=== PATIENT | male | born 1970 | race Caucasian/White ===

== ENCOUNTER 2018-07-17 10:56 | Day surgery (SDC) | payer OTHER ==
[2018-07-17] MEDS ORDERED: Ketamine HCl 50 MG/ML IV ONE (10:57)
[2018-07-17] MEDS ORDERED: Xylocaine 1% Vial 30 ML PF IJ ONE (10:57)
[2018-07-17] MEDS ORDERED: LIDOCAINE HCL 2% 100 MG/5 ML IJ ONE (10:57)
[2018-07-17] MEDS ORDERED: Depo-Medrol 40 MG/ML IM ONE (10:57)
[2018-07-17] MEDS ORDERED: DIPRIVAN 200 MG/20 ML IV ONE (10:57)
--- NOTE | 2018-07-17 13:55 | XRAY ---
Indication: Bilateral L3-S1 RFA. Intraoperative fluoroscopy was provided for 12 seconds. Single digital spot image submitted for interpretation demonstrates posterior needle tips projecting over the expected course of the left and right L4-S1 nerve roots. Correlate with intraoperative findings/report.
[2018-07-17] MEDS ORDERED: Lactated Ringers 1,000 ML IV ONE (14:37)
--- NOTE | 2018-07-18 08:47 | XRAY ---
12 seconds fluoroscopy time in surgery for L3-S1 bilateral RFA.
== END 2018-07-17 13:18 | disposition home or self-care (01) ==
LOC: SDC-PAIN 10:56
PROVIDERS: ATTEND Psychiatry & Neurology Pain Medicine
DX: M47.817 Spondylosis without myelopathy or radiculopathy, lumbosacral region (principal); E03.9 Hypothyroidism, unspecified; G47.30 Sleep apnea, unspecified; K50.90 Crohn's disease, unspecified, without complications; Z79.899 Other long term (current) drug therapy
CPT/HCPCS: 72100; 77002; J1030; J2001; J2704

== ENCOUNTER 2018-09-04 09:28 | Day surgery (SDC) | payer OTHER ==
[2018-09-04] MEDS ORDERED: Depo-Medrol 40 MG/ML IM ONE (09:29)
[2018-09-04] MEDS ORDERED: Ketamine HCl 50 MG/ML IJ ONE (09:29)
[2018-09-04] MEDS ORDERED: Marcaine 0.5% SDV 10 ML IJ ONE (09:29)
[2018-09-04] MEDS ORDERED: DIPRIVAN 200 MG/20 ML IV ONE (09:29)
--- NOTE | 2018-09-04 13:26 | XRAY ---
Indication: Right L4-S1 MBB. Intraoperative fluoroscopy was provided for 16 seconds. Single digital spot image submitted for interpretation demonstrates posterior needle tips projecting over the expected course of the right L4-S1 nerve roots. Correlate with intraoperative findings/report.
--- NOTE | 2018-09-04 13:28 | XRAY ---
16 seconds of fluoroscopy was used in surgery for a right L4-L5, L5-S1 MBB.
[2018-09-04] MEDS ORDERED: Lactated Ringers 1,000 ML IV ONE (14:53)
== END 2018-09-04 11:20 | disposition home or self-care (01) ==
LOC: SDC-PAIN 09:28
PROVIDERS: ATTEND Psychiatry & Neurology Pain Medicine
DX: M47.816 Spondylosis without myelopathy or radiculopathy, lumbar region (principal); E03.9 Hypothyroidism, unspecified; G47.30 Sleep apnea, unspecified; K50.90 Crohn's disease, unspecified, without complications; K58.9 Irritable bowel syndrome, unspecified; Z79.899 Other long term (current) drug therapy
CPT/HCPCS: 64493; 64494; 72020; 77002; J1030; J2704

== ENCOUNTER 2018-11-20 13:01 | Day surgery (SDC) | payer OTHER ==
[2018-11-20] MEDS ORDERED: Depo-Medrol 40 MG/ML IM ONE (13:02)
[2018-11-20] MEDS ORDERED: Marcaine 0.5% SDV 10 ML IJ ONE (13:02)
[2018-11-20] MEDS ORDERED: Xylocaine 1% Vial 30 ML PF IJ ONE (13:02)
[2018-11-20] MEDS ORDERED: Lactated Ringers 1,000 ML IV ONE ×2 (13:13→17:09)
--- NOTE | 2018-11-20 15:28 | XRAY ---
Indication: Right L4-S1 RFA. Intraoperative fluoroscopy was provided for 24 seconds. 2 digital spot images submitted for interpretation demonstrates posterior needle tips projecting over the expected course of the right L4-S1 nerve roots. Correlate with intraoperative findings/report.
--- NOTE | 2018-11-20 16:51 | XRAY ---
24 seconds fluoroscopy time in surgery for bilateral L4-S1 RFA.
== END 2018-11-20 14:30 | disposition home or self-care (01) ==
LOC: SDC-PAIN 13:01
PROVIDERS: ATTEND Psychiatry & Neurology Pain Medicine
DX: M47.816 Spondylosis without myelopathy or radiculopathy, lumbar region (principal); E03.9 Hypothyroidism, unspecified; G47.30 Sleep apnea, unspecified; K50.90 Crohn's disease, unspecified, without complications; Z79.899 Other long term (current) drug therapy
CPT/HCPCS: 64635; 64636; 72100; 77002; J1030; J2001

== ENCOUNTER 2019-05-28 06:31 | Observation (INO) | payer OTHER ==
--- NOTE | 2019-05-28 06:43 | ERPHSYRPT ---
<ELOISA ALMODOVAR - Last Filed: 05/28/19 06:47> - History of Present Illness Time Seen by Provider: 05/28/19 06:36 Historian: patient Exam Limitations: no limitations Physician History: 48 y/o white male presents with 4 day h/o central substernal nonradiating chest tightness. no h/o TX or CADZ. pt has h/o hypothyroid, crohns dz and depression. Timing/Duration: day(s) (4) Activities at Onset: none Quality: tightness Location: substernal, central Chest Pain Radiation: no radiation Severity of Pain-Max: mild Severity of Pain-Current: mild Associated Symptoms: No denies symptoms Nitro Today/Relief: no nitro taken today Aspirin Treatment Today: no aspirin today Allergies/Adverse Reactions: Penicillins Allergy (Unknown, Verified 05/28/19 07:09) Home Medications: Levothyroxine Sodium [Synthroid] 175 mcg PO DAILY 02/25/14 [History] Montelukast Sodium [Singulair] 10 mg PO DAILY 02/25/14 [History] Escitalopram Oxalate 10 mg [Lexapro 10 MG] 20 mg PO DAILY 03/09/16 [History] Testosterone Cypionate [Depo-Testosterone] 0.7 ml IM UD 03/09/16 [History] Dextroamphetamine/Amphetamine [Adderall Xr 20 mg Capsule] 20 mg PO DAILY [History] Hx Influenza Vaccination/Date Given: (2012) Hx Pneumococcal Vaccination/Date Given: No - Review of Systems Constitutional: No Symptoms Eyes: No Symptoms Ears, Nose, & Throat: No Symptoms Respiratory: No Symptoms Cardiac: Chest Pain Abdominal/Gastrointestinal: No Symptoms Genitourinary Symptoms: No Symptoms Musculoskeletal: No Symptoms Skin: No Symptoms Neurological: No Symptoms Psychological: No Symptoms Endocrine: No Symptoms Hematologic/Lymphatic: No Symptoms Immunological/Allergic: No Symptoms All Other Systems: Reviewed and Negative - Past Medical History Pertinent Past Medical History: Yes Neurological History: No Pertinent History ENT History: No Pertinent History Cardiac History: No Pertinent History Respiratory History: Sleep Apnea Endocrine Medical History: Hypothyroidism Musculoskeletal History: Osteoarthritis, Other GI Medical History: No Pertinent History History: No Pertinent History Psycho-Social History: Attention Deficit Disorder, Depression Male Reproductive Disorders: No Pertinent History 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 - Past Surgical History Past Surgical History: Yes Neuro Surgical History: No Pertinent History Cardiac: No Pertinent History Respiratory: No Pertinent History Gastrointestinal: No Pertinent History Genitourinary: No Pertinent History Musculoskeletal: No Pertinent History Male Surgical History: No Pertinent History Other Surgical History: deviated surgery - Social History Smoking Status: Never smoker Exposure to second hand smoke: No Drug Use: none - Nursing Vital Signs Nursing Vital Signs: Initial Vital Signs Temperature 98.9 F 05/28/19 06:32 Pulse Rate 88 05/28/19 06:32 Respiratory Rate 14 05/28/19 06:32 Blood Pressure 165/103 05/28/19 06:32 O2 Sat by Pulse Oximetry 98 05/28/19 06:32 Pain Scale Pain Intensity 1 - Physical Exam General Appearance: mild distress, alert, anxiety Eye Exam: PERRL/EOMI, eyes nml inspection Ears, Nose, Throat Exam: normal ENT inspection, moist mucous membranes Neck Exam: normal inspection, non-tender, supple, full range of motion Respiratory Exam: normal breath sounds, chest tenderness, lungs clear, respiratory distress, airway intact Cardiovascular Exam: regular rate/rhythm, normal heart sounds, normal peripheral pulses Gastrointestinal/Abdomen Exam: soft, normal bowel sounds, No tenderness Rectal Exam: not done Back Exam: normal inspection, normal range of motion, No CVA tenderness, No vertebral tenderness Extremity Exam: normal inspection, normal range of motion, pelvis stable Neurologic Exam: alert, oriented x 3, cooperative, program management specialist II-XII nml as tested Skin Exam: normal color, warm, dry Lymphatic Exam: No adenopathy SpO2 Interpretation: normal O2 Delivery: Room Air - Course Nursing assessment & vital signs reviewed: Yes EKG Interpreted by Me: RATE (90), Sinus Rhythm, NORMAL AXIS, NORMAL INTERVALS, NORMAL QRS, Other (comparison ekg no change.) Ordered Tests: Active Orders 24 hr Category Date Time Status Bedrest with BRP/BSC ROUTINE Activity 05/28/19 08:34 Active Television Reporter STAT Care 05/28/19 07:29 Active Code Status Order ROUTINE Care 05/28/19 08:34 Active IV Care Q6H Care 05/28/19 08:34 Active IV Insertion STAT Care 05/28/19 07:28 Active Implement Chest Pain Pathway ROUTINE Care 05/28/19 08:[address] in Observation ROUTINE Care 05/28/19 08:34 Active Min Hose, Apply ROUTINE Care 05/28/19 08:34 Active Weight,Daily 0600 Care 05/28/19 08:34 Active CHEST 1 VIEW (PORTABLE) Stat Exams 05/28/19 07:29 Completed CBC W DIFF Stat Lab 05/28/19 06:48 Completed CMP Stat Lab 05/28/19 06:48 Completed D-DIMER QUANTITATIVE Stat Lab 05/28/19 06:48 Completed LIPID PROFILE AM.LAB Lab 05/29/19 04:00 Ordered NT PRO BNP Stat Lab 05/28/19 06:48 Completed TROPONIN Q3H Lab 05/28/19 06:48 Completed TROPONIN Q3H Lab 05/28/19 10:30 Ordered TROPONIN Q3H Lab 05/28/19 13:30 Ordered TROPONIN Q3H Lab 05/28/19 16:30 Ordered TROPONIN Q3H Lab 05/28/19 19:30 Ordered Urine Triage Profile Stat Lab 05/28/19 08:11 Completed EKG Q8HX2,QAMX3,PRN RT 05/28/19 08:34 Active Pulse Oximetry Q4H RT 05/28/19 08:34 Active Medication Summary Generic Name Dose Route Start Last Admin Trade Name Freq PRN Reason Stop Dose Admin Acetaminophen 650 mg 05/28/19 08:34 Tylenol 325 Mg PO 06/27/19 08:33 Q4H PRN PRN PAIN AND/OR FEVER Al Hydrox/Mg Hydrox/Simethicone 30 ml 05/28/19 08:34 Maalox Es 30 Ml Unit Dose PO 06/27/19 08:33 Q4H PRN PRN INDIGESTION Magnesium Hydroxide 30 - 60 ml 05/28/19 08:34 Milk Of Magnesia 30 Ml PO 06/27/19 08:33 QDP PRN CONSTIPATION Senna/Docusate Sodium 2 udtab 05/28/19 08:34 Senokot-S Tablet PO 06/27/19 08:33 BID PRN PRN CONSTIPATION Discontinued Medications Generic Name Dose Route Start Last Admin Trade Name Freq PRN Reason Stop Dose Admin Aspirin 324 mg 05/28/19 07:28 05/28/19 07:44 Baby Aspirin 81 Mg Chew PO 05/28/19 07:29 324 mg STAT ONE Administration Lab/Rad Data: Laboratory Result Diagrams 05/28/19 06:48 05/28/19 06:48 Laboratory Results 05/28/19 05/28/19 05/28/19 Range/Units 06:48 06:48 06:48 WBC (4.0-10.5) K/mm3 RBC (4.1-5.6) M/mm3 Hgb (12.5-18.0) gm/dl Hct (42-50) % MCV (78-100) fl MCH (26-32) pg MCHC (32-36) g/dl RDW (11.5-14.0) % Plt Count (150-450) K/mm3 MPV (7.5-11.0) fl Gran % (36.0-66.0) % Eos # (Auto) (0-0.5) Absolute Lymphs (auto) (1.0-4.6) Absolute Monos (auto) (0.0-1.3) Lymphocytes % (24.0-44.0) % Monocytes % (0.0-12.0) % Eosinophils % (0.00-5.0) % Basophils % (0.0-0.4) % Absolute Granulocytes (1.4-6.9) Basophils # (0-0.4) D-Dimer 281 (215-500) ng/mL Sodium 140 (137-145) mmol/L Potassium 4.2 (3.5-5.1) mmol/L Chloride 98 (98-107) mmol/L Carbon Dioxide 30 (22-30) mmol/L Anion Gap 15.8 H (5-15) MEQ/L BUN 22 H (9-20) mg/dL Creatinine 1.47 H (0.66-1.25) mg/dL Estimated GFR 54.3 ML/MIN Glucose 103 (74-106) mg/dL Calcium 9.3 (8.4-10.2) mg/dL Total Bilirubin 1.10 (0.2-1.3) mg/dL AST 47 (17-59) U/L ALT 32 (0-50) U/L Alkaline Phosphatase 65 (38-126) U/L Troponin I 0.032 (0.000-0.034) ng/mL NT-Pro-B Natriuret Pep 56.6 (0-450) pg/mL Serum Total Protein 8.6 H (6.3-8.2) g/dL Albumin 4.7 (3.5-5.0) g/dL 05/28/19 Range/Units 06:48 WBC 7.8 (4.0-10.5) K/mm3 RBC 5.55 (4.1-5.6) M/mm3 Hgb 12.1 L (12.5-18.0) gm/dl Hct 41.0 L (42-50) % MCV 73.9 L (78-100) fl MCH 21.8 L (26-32) pg MCHC 29.5 L (32-36) g/dl RDW 19.3 H (11.5-14.0) % Plt Count 287 (150-450) K/mm3 MPV 9.6 (7.5-11.0) fl Gran % 70.4 H (36.0-66.0) % Eos # (Auto) 0.11 (0-0.5) Absolute Lymphs (auto) 1.45 (1.0-4.6) Absolute Monos (auto) 0.71 (0.0-1.3) Lymphocytes % 18.6 L (24.0-44.0) % Monocytes % 9.1 (0.0-12.0) % Eosinophils % 1.4 (0.00-5.0) % Basophils % 0.5 (0.0-0.4) % Absolute Granulocytes 5.49 (1.4-6.9) Basophils # 0.04 (0-0.4) D-Dimer (215-500) ng/mL Sodium (137-145) mmol/L Potassium (3.5-5.1) mmol/L Chloride (98-107) mmol/L Carbon Dioxide (22-30) mmol/L Anion Gap (5-15) MEQ/L BUN (9-20) mg/dL Creatinine (0.66-1.25) mg/dL Estimated GFR ML/MIN Glucose (74-106) mg/dL Calcium (8.4-10.2) mg/dL Total Bilirubin (0.2-1.3) mg/dL AST (17-59) U/L ALT (0-50) U/L Alkaline Phosphatase (38-126) U/L Troponin I (0.000-0.034) ng/mL NT-Pro-B Natriuret Pep (0-450) pg/mL Serum Total Protein (6.3-8.2) g/dL Albumin (3.5-5.0) g/dL - Progress Air Movement: good Progress Note: 05/28/19 06:58 pt tranfer of care to dr. berry. he accepts pt in transfer - Departure Departure Disposition: Home Clinical Impression: Chest pain Condition: Stable Critical Care Time: No Referrals: ELIUD FRANKLIN MD [Primary Care Provider] - <YAMILKA BERRY - Last Filed: 05/28/19 08:46> - Progress Progress Note: Patient reassessed. He continues to experience left sided chest discomfort. Ecg shows NSR/negative for ischemia. Initial troponin negative. D-dimer negative. CXR clear. ASA administered. POC discussed with patient. He is very concerned. Case discussed with Dr. Franklin who accepts admission to observation. Patient agrees to admission. 05/28/19 08:40
[2019-05-28] MEDS ORDERED: BABY ASPIRIN 81 MG CHEW PO ONE (07:28)
[2019-05-28 07:42] LABS: Absolute Neutrophil Ct (ANC) 5.49 (1.4-6.9); BASOPHIL % 0.5 % (0.0-0.4); Basophil (Absolute #) 0.04 (0-0.4); Eosinophil % 1.4 % (0.00-5.0); Eosinophil (Absolute #) 0.11 (0-0.5); Hemoglobin 12.1 gm/dl (12.5-18.0); Lymphocyte (Absolute #) 1.45 (1.0-4.6); Lymphocytes % 18.6 % (24.0-44.0); Mean Cell Volume 73.9 fl (78-100); Mean Corpuscular Hemoglobin 21.8 pg (26-32); Mean Corpuscular Hgb Concent. 29.5 g/dl (32-36); Mean Platelet Volume 9.6 fl (7.5-11.0); Monocyte (Absolute #) 0.71 (0.0-1.3); Monocytes % 9.1 % (0.0-12.0); Neutrophil % 70.4 % (36.0-66.0); Platelet Count 287 K/mm3 (150-450); Red Blood Count 5.55 M/mm3 (4.1-5.6); Red Cell Distribution Width 19.3 % (11.5-14.0); White Blood Count 7.8 K/mm3 (4.0-10.5)
[2019-05-28 07:57] LABS: ALBUMIN 4.7 g/dL (3.5-5.0); ANION GAP 15.8 MEQ/L (5-15); BILIRUBIN,TOTAL 1.1 mg/dL (0.2-1.3); Calcium 9.3 mg/dL (8.4-10.2); Creatinine 1 1.47 mg/dL (0.66-1.25); NT PRO BNP 56.6 pg/mL (0-450); Potassium 4.2 mmol/L (3.5-5.1); Total Protein 8.6 g/dL (6.3-8.2)
[2019-05-28] MEDS ORDERED: MILK OF MAGNESIA 30 ML PO PRN (08:34)
[2019-05-28] MEDS ORDERED: MAALOX ES 30 ML UNIT DOSE PO PRN (08:34)
[2019-05-28] MEDS ORDERED: TYLENOL 325 MG PO PRN (08:34)
[2019-05-28] MEDS ORDERED: Senokot-S Tablet PO PRN (08:34)
[2019-05-28 08:35] LABS: Amphetamine,Urine POSITIVE (NEGATIVE); Barbiturate,Urine NEGATIVE (NEGATIVE); Benzodiazepine,Urine NEGATIVE (NEGATIVE); Cocaine,Urine NEGATIVE (NEGATIVE); Methadone,Urine NEGATIVE (NEGATIVE); Opiate,Urine NEGATIVE (NEGATIVE); PCP,Urine NEGATIVE (NEGATIVE); THC,Urine NEGATIVE (NEGATIVE)
--- NOTE | 2019-05-28 08:36 | XRAY ---
Indication: Chest pain. Comparison: None Portable chest is clear. Heart is not enlarged for AP portable technique. Bony thorax intact with minimal degenerative changes. Impression: Nonacute chest.
[2019-05-28 09:28] LABS: Slide Review 1 YES
[2019-05-28] MEDS ORDERED: Zofran 4 MG/2 ML VIAL IV PRN (10:04)
[2019-05-28] MEDS ORDERED: MORPHINE SULFATE 4 MG INJ IV PRN (10:04)
--- NOTE | 2019-05-28 10:04 | PCM.HP ---
History of Present Illness - Chief Complaint Chief Complaint: chest pain History of Present Illness: is a 48 year old male who presented to the ER with pressure in his chest for the last 3-4 days, his pain is much worse at night. He has no history of cad, has a history of depression and crohn's. his pain has resolved since he was in the ER, he denies associated shortness of breath, no pnd or othopnea, no nausea or vomiting. he admits to being under a great deal of stress and feeling anxious, he was having problems with a new antidepressant viibryd so stopped it and went back to taking lexapro which has done well for him in the past. - Review of Systems Constitutional: No Fever, No Chills Cardiac: Chest Pain, No Syncope, No Orthopnea, No PND Abdominal/Gastrointestinal: No Abdominal Pain, No Nausea, No Vomiting, No Diarrhea Genitourinary Symptoms: No Dysuria Psychological: Anxiety, Depression, No Suicidal Ideations, No Homicidal Ideations All Other Systems: Reviewed and Negative Medications & Allergies Home Medications: Home Medication List Levothyroxine Sodium [Synthroid] 175 mcg PO DAILY 02/25/14 [History Confirmed ] Montelukast Sodium [Singulair] 10 mg PO DAILY 02/25/14 [History Confirmed ] Escitalopram Oxalate 10 mg [Lexapro 10 MG] 20 mg PO HS 03/09/16 [History Confirmed 05/28/19] Testosterone Cypionate [Depo-Testosterone] 0.8 ml IM UD 03/09/16 [History Confirmed 05/28/19] Dextroamphetamine/Amphetamine [Adderall Xr 20 mg Capsule] 20 mg PO DAILY [History Confirmed 05/28/19] Fenofibrate Nanocrystallized [Fenofibrate] 48 mg PO HS 05/28/19 [History Confirmed 05/28/19] Mesalamine 1.2 gm PO DAILY 05/28/19 [History Confirmed 05/28/19] Metformin HCl 500 mg [Glucophage 500 MG] 500 mg PO BID 05/28/19 [History Confirmed 05/28/19] Omeprazole 40 mg PO DAILY 05/28/19 [History Confirmed 05/28/19] Vilazodone HCl [Viibryd] 1 each PO DAILY 05/28/19 [History Confirmed 05/28/19] Allergies/Adverse Reactions: Allergies Allergy/AdvReac Type Severity Reaction Status Date / Time Penicillins Allergy Unknown Verified 05/28/19 07:09 - Past Medical History Past Medical History: Yes Neurological History: No Pertinent History ENT History: No Pertinent History Cardiac History: No Pertinent History Respiratory History: Sleep Apnea Endocrine Medical History: Diabetes Type II, Hypothyroidism Musculoskelatal History: Other GI Medical History: No Pertinent History History: No Pertinent History Pyscho-Social History: Attention Deficit Disorder, Depression Male Reproductive Disorders: No Pertinent History Comment: chronic back pain - Past Surgical History Past Surgical History: Yes Neuro Surgical History: No Pertinent History Cardiac History: No Pertinent History Respiratory Surgery: No Pertinent History GI Surgical History: No Pertinent History Genitourinary Surgical Hx: No Pertinent History Musculskeletal Surgical Hx: No Pertinent History Male Surgical History: No Pertinent History Other Surgical History: deviated septum surgery - Social History Smoking Status: Never smoker Exposure to second hand smoke: No Alcohol: None Drug Use: none - Physical Exam Vital Signs: Vital Signs - 24 hr Temp Pulse Pulse Resp BP Pulse Ox 05/28/19 09:17 98.7 F 85 13 129/72 99 05/28/19 08:04 87 16 142/92 98 05/28/19 07:25 89 15 141/83 98 05/28/19 06:32 98.9 F 87 88 14 165/103 98 General Appearance: no apparent distress, obese Neurologic Exam: alert, oriented x 3 Respiratory Exam: normal breath sounds, lungs clear, No respiratory distress Cardiovascular Exam: regular rate/rhythm, normal heart sounds, normal peripheral pulses Gastrointestinal/Abdomen Exam: soft, normal bowel sounds, No tenderness, No mass Extremity Exam: normal inspection, normal range of motion, pelvis stable Skin Exam: normal color, warm, dry, No rash Results - Labs Lab/Micro Results: Lab Results-Last 24 Hours 05/28/19 05/28/19 05/28/19 Range/Units 06:48 06:48 06:48 WBC 7.8 (4.0-10.5) K/mm3 RBC 5.55 (4.1-5.6) M/mm3 Hgb 12.1 L (12.5-18.0) gm/dl Hct 41.0 L (42-50) % MCV 73.9 L (78-100) fl MCH 21.8 L (26-32) pg MCHC 29.5 L (32-36) g/dl RDW 19.3 H (11.5-14.0) % Plt Count 287 (150-450) K/mm3 MPV 9.6 (7.5-11.0) fl Gran % 70.4 H (36.0-66.0) % Eos # (Auto) 0.11 (0-0.5) Absolute Lymphs (auto) 1.45 (1.0-4.6) Absolute Monos (auto) 0.71 (0.0-1.3) Lymphocytes % 18.6 L (24.0-44.0) % Monocytes % 9.1 (0.0-12.0) % Eosinophils % 1.4 (0.00-5.0) % Basophils % 0.5 (0.0-0.4) % Absolute Granulocytes 5.49 (1.4-6.9) Basophils # 0.04 (0-0.4) D-Dimer 281 (215-500) ng/mL Sodium 140 (137-145) mmol/L Potassium 4.2 (3.5-5.1) mmol/L Chloride 98 (98-107) mmol/L Carbon Dioxide 30 (22-30) mmol/L Anion Gap 15.8 H (5-15) MEQ/L BUN 22 H (9-20) mg/dL Creatinine 1.47 H (0.66-1.25) mg/dL Estimated GFR 54.3 ML/MIN Glucose 103 (74-106) mg/dL Calcium 9.3 (8.4-10.2) mg/dL Total Bilirubin 1.10 (0.2-1.3) mg/dL AST 47 (17-59) U/L ALT 32 (0-50) U/L Alkaline Phosphatase 65 (38-126) U/L Troponin I (0.000-0.034) ng/mL NT-Pro-B Natriuret Pep 56.6 (0-450) pg/mL Serum Total Protein 8.6 H (6.3-8.2) g/dL Albumin 4.7 (3.5-5.0) g/dL Urine Opiates Level (NEGATIVE) Ur Methadone (NEGATIVE) Urine Barbiturates (NEGATIVE) Ur Phencyclidine (PCP) (NEGATIVE) Urine Amphetamine (NEGATIVE) U Benzodiazepine Level (NEGATIVE) Urine Cocaine (NEGATIVE) Urine Marijuana (THC) (NEGATIVE) Slides for Path Review YES 05/28/19 05/28/19 Range/Units 06:48 08:11 WBC (4.0-10.5) K/mm3 RBC (4.1-5.6) M/mm3 Hgb (12.5-18.0) gm/dl Hct (42-50) % MCV (78-100) fl MCH (26-32) pg MCHC (32-36) g/dl RDW (11.5-14.0) % Plt Count (150-450) K/mm3 MPV (7.5-11.0) fl Gran % (36.0-66.0) % Eos # (Auto) (0-0.5) Absolute Lymphs (auto) (1.0-4.6) Absolute Monos (auto) (0.0-1.3) Lymphocytes % (24.0-44.0) % Monocytes % (0.0-12.0) % Eosinophils % (0.00-5.0) % Basophils % (0.0-0.4) % Absolute Granulocytes (1.4-6.9) Basophils # (0-0.4) D-Dimer (215-500) ng/mL Sodium (137-145) mmol/L Potassium (3.5-5.1) mmol/L Chloride (98-107) mmol/L Carbon Dioxide (22-30) mmol/L Anion Gap (5-15) MEQ/L BUN (9-20) mg/dL Creatinine (0.66-1.25) mg/dL Estimated GFR ML/MIN Glucose (74-106) mg/dL Calcium (8.4-10.2) mg/dL Total Bilirubin (0.2-1.3) mg/dL AST (17-59) U/L ALT (0-50) U/L Alkaline Phosphatase (38-126) U/L Troponin I 0.032 (0.000-0.034) ng/mL NT-Pro-B Natriuret Pep (0-450) pg/mL Serum Total Protein (6.3-8.2) g/dL Albumin (3.5-5.0) g/dL Urine Opiates Level NEGATIVE (NEGATIVE) Ur Methadone NEGATIVE (NEGATIVE) Urine Barbiturates NEGATIVE (NEGATIVE) Ur Phencyclidine (PCP) NEGATIVE (NEGATIVE) Urine Amphetamine POSITIVE (NEGATIVE) U Benzodiazepine Level NEGATIVE (NEGATIVE) Urine Cocaine NEGATIVE (NEGATIVE) Urine Marijuana (THC) NEGATIVE (NEGATIVE) Slides for Path Review - Radiology Impressions Radiology Exams & Impressions: Radiology Procedures Category Date Time Status CHEST 1 VIEW (PORTABLE) Stat Exams 05/28/19 07:29 Completed ECHO W/2D AND DOPPLER [US] Routine Exams 05/28/19 Ordered - Other Procedures and Tests Respiratory Therapy 05/28/19 14:39 EKG ONCE 05/28/19 21:00 BiPap/CPAP ROUTINE 05/29/19 05:00 EKG ONCE 05/30/19 05:00 EKG ONCE 05/31/19 05:00 EKG ONCE Assessment/Plan (1) Chest pain Current Visit: Yes Status: Acute Assessment & Plan: nothing acute on ekg, initial troponin negative. rule out MO with serial enzymes , check echo and hold stimulant at this time. continue aspirin at this time, clinically unlikely cardiac but more anxiety related Code(s): R07.9 - CHEST PAIN, UNSPECIFIED (2) Anxiety Current Visit: Yes Status: Acute Assessment & Plan: continue lexapro, will try po ativan prn Code(s): F41.9 - ANXIETY DISORDER, UNSPECIFIED (3) Crohn disease Current Visit: Yes Status: Acute Code(s): K50.90 - CROHN'S DISEASE, UNSPECIFIED, WITHOUT COMPLICATIONS
[2019-05-28] MEDS: SYNTHROID 75 MCG PO SCH (11:09)
[2019-05-28] MEDS: SYNTHROID 100 MCG PO SCH (11:09)
[2019-05-28] MEDS: Ativan 0.5 MG PO PRN ×2 (11:09→22:20)
[2019-05-28] MEDS ORDERED: Tricor 145 MG ONE (20:01)
[2019-05-28] MEDS ORDERED: Lexapro 10 MG ONE (20:01)
[2019-05-28] MEDS ORDERED: Lexapro 10 MG PO SCH (22:00)
[2019-05-28] MEDS ORDERED: Tricor 145 MG PO SCH (22:00)
[2019-05-29 05:04] LABS: BASOPHIL % 0.7 % (0.0-0.4); Basophil (Absolute #) 0.06 (0-0.4); Eosinophil % 2.2 % (0.00-5.0); Hemoglobin 12.3 gm/dl (12.5-18.0); Lymphocyte (Absolute #) 1.87 (1.0-4.6); Lymphocytes % 20.7 % (24.0-44.0); Mean Cell Volume 74.2 fl (78-100); Mean Corpuscular Hemoglobin 21.7 pg (26-32); Mean Corpuscular Hgb Concent. 29.3 g/dl (32-36); Mean Platelet Volume 9.9 fl (7.5-11.0); Monocyte (Absolute #) 0.92 (0.0-1.3); Monocytes % 10.2 % (0.0-12.0); Neutrophil % 66.2 % (36.0-66.0); Platelet Count 300 K/mm3 (150-450); Red Blood Count 5.66 M/mm3 (4.1-5.6); Red Cell Distribution Width 19.5 % (11.5-14.0); White Blood Count 9.1 K/mm3 (4.0-10.5)
[2019-05-29 05:22] LABS: Slide Review 1 YES
[2019-05-29 05:28] LABS: ALBUMIN 4.4 g/dL (3.5-5.0); ANION GAP 14.4 MEQ/L (5-15); BILIRUBIN,TOTAL 0.9 mg/dL (0.2-1.3); Calcium 8.8 mg/dL (8.4-10.2); Creatinine 1 1.38 mg/dL (0.66-1.25); Potassium 4.1 mmol/L (3.5-5.1); Risk Ratio 7.6
[2019-05-29] MEDS ORDERED: Sodium Chloride 0.9% 1000 ML 1,000 ML IV SCH (08:00)
[2019-05-29] MEDS ORDERED: Sodium Chloride 0.9% 10 ML FLUSH Syringe IV PRN (08:15)
--- NOTE | 2019-05-29 08:49 | PCM.DS ---
Discharge Summary Date of Admission: 05/28/19 08:54 Admitting Physician: ELIUD ZUÑIGA Consults: Consults on Case 05/29/19 08:37 Psychiatric Consult STAT Primary Care Provider: ELIUD ZUÑIGA Allergies Allergies Penicillins Allergy (Unknown, Verified 05/28/19 07:09) Hospital Summary - Hospital Course Hospital Course: patient admitted with chest pain, DE ruled out. he is under a tremendous amount of stress and is very anxious due to family situation/circumstances. he has not relayed any intent to harm himself or others but his pain is mostly a problem at night and he is unable to sleep - Vitals & Intake/Output Vital Signs: Vital Signs Temperature 97 F 05/29/19 07:12 Pulse Rate 103 H 05/29/19 07:12 Respiratory Rate 14 05/29/19 07:12 Blood Pressure 128/60 05/29/19 07:12 O2 Sat by Pulse Oximetry 98 05/29/19 07:12 Intake & Output: Intake & Output 05/26/19 05/27/19 05/28/19 05/29/19 11:59 11:59 11:59 11:59 Intake Total 240 1360 Output Total 1800 Balance 240 -440 Weight 127.8 kg 127.3 kg - Lab Result Diagrams: 05/29/19 04:40 05/29/19 04:40 Lab Results-Last 24 Hrs: Lab Results-Last 24 Hours 05/28/19 05/28/19 05/28/19 Range/Units 06:48 07:00 07:00 WBC (4.0-10.5) K/mm3 RBC (4.1-5.6) M/mm3 Hgb (12.5-18.0) gm/dl Hct (42-50) % MCV (78-100) fl MCH (26-32) pg MCHC (32-36) g/dl RDW (11.5-14.0) % Plt Count (150-450) K/mm3 MPV (7.5-11.0) fl Gran % (36.0-66.0) % Eos # (Auto) (0-0.5) Absolute Lymphs (auto) (1.0-4.6) Absolute Monos (auto) (0.0-1.3) Lymphocytes % (24.0-44.0) % Monocytes % (0.0-12.0) % Eosinophils % (0.00-5.0) % Basophils % (0.0-0.4) % Absolute Granulocytes (1.4-6.9) Basophils # (0-0.4) Sodium (137-145) mmol/L Potassium (3.5-5.1) mmol/L Chloride (98-107) mmol/L Carbon Dioxide (22-30) mmol/L Anion Gap (5-15) MEQ/L BUN (9-20) mg/dL Creatinine (0.66-1.25) mg/dL Estimated GFR ML/MIN Glucose (74-106) mg/dL Calcium (8.4-10.2) mg/dL Total Bilirubin (0.2-1.3) mg/dL AST (17-59) U/L ALT (0-50) U/L Alkaline Phosphatase (38-126) U/L Troponin I (0.000-0.034) ng/mL Serum Total Protein (6.3-8.2) g/dL Albumin (3.5-5.0) g/dL Triglycerides (30-150) mg/dL Cholesterol (50-200) mg/dL LDL Cholesterol (30-100) mg/dL HDL Cholesterol (40-60) mg/dL Heart Disease Risk Ratio Free T4 1.15 (0.76-1.46) ng/dL TSH 3rd Generation 5.120 H (0.47-4.68) mIU/L Slides for Path Review YES 05/28/19 05/28/19 05/28/19 Range/Units 10:30 13:24 16:50 WBC (4.0-10.5) K/mm3 RBC (4.1-5.6) M/mm3 Hgb (12.5-18.0) gm/dl Hct (42-50) % MCV (78-100) fl MCH (26-32) pg MCHC (32-36) g/dl RDW (11.5-14.0) % Plt Count (150-450) K/mm3 MPV (7.5-11.0) fl Gran % (36.0-66.0) % Eos # (Auto) (0-0.5) Absolute Lymphs (auto) (1.0-4.6) Absolute Monos (auto) (0.0-1.3) Lymphocytes % (24.0-44.0) % Monocytes % (0.0-12.0) % Eosinophils % (0.00-5.0) % Basophils % (0.0-0.4) % Absolute Granulocytes (1.4-6.9) Basophils # (0-0.4) Sodium (137-145) mmol/L Potassium (3.5-5.1) mmol/L Chloride (98-107) mmol/L Carbon Dioxide (22-30) mmol/L Anion Gap (5-15) MEQ/L BUN (9-20) mg/dL Creatinine (0.66-1.25) mg/dL Estimated GFR ML/MIN Glucose (74-106) mg/dL Calcium (8.4-10.2) mg/dL Total Bilirubin (0.2-1.3) mg/dL AST (17-59) U/L ALT (0-50) U/L Alkaline Phosphatase (38-126) U/L Troponin I 0.026 0.022 0.013 (0.000-0.034) ng/mL Serum Total Protein (6.3-8.2) g/dL Albumin (3.5-5.0) g/dL Triglycerides (30-150) mg/dL Cholesterol (50-200) mg/dL LDL Cholesterol (30-100) mg/dL HDL Cholesterol (40-60) mg/dL Heart Disease Risk Ratio Free T4 (0.76-1.46) ng/dL TSH 3rd Generation (0.47-4.68) mIU/L Slides for Path Review 05/28/19 05/29/19 05/29/19 Range/Units 19:46 04:40 04:40 WBC 9.1 (4.0-10.5) K/mm3 RBC 5.66 H (4.1-5.6) M/mm3 Hgb 12.3 L (12.5-18.0) gm/dl Hct 42.0 (42-50) % MCV 74.2 L (78-100) fl MCH 21.7 L (26-32) pg MCHC 29.3 L (32-36) g/dl RDW 19.5 H (11.5-14.0) % Plt Count 300 (150-450) K/mm3 MPV 9.9 (7.5-11.0) fl Gran % 66.2 H (36.0-66.0) % Eos # (Auto) 0.20 (0-0.5) Absolute Lymphs (auto) 1.87 (1.0-4.6) Absolute Monos (auto) 0.92 (0.0-1.3) Lymphocytes % 20.7 L (24.0-44.0) % Monocytes % 10.2 (0.0-12.0) % Eosinophils % 2.2 (0.00-5.0) % Basophils % 0.7 (0.0-0.4) % Absolute Granulocytes 6.00 (1.4-6.9) Basophils # 0.06 (0-0.4) Sodium 140 (137-145) mmol/L Potassium 4.1 (3.5-5.1) mmol/L Chloride 99 (98-107) mmol/L Carbon Dioxide 31 H (22-30) mmol/L Anion Gap 14.4 (5-15) MEQ/L BUN 18 (9-20) mg/dL Creatinine 1.38 H (0.66-1.25) mg/dL Estimated GFR 58.5 ML/MIN Glucose 103 (74-106) mg/dL Calcium 8.8 (8.4-10.2) mg/dL Total Bilirubin 0.90 (0.2-1.3) mg/dL AST 43 (17-59) U/L ALT 32 (0-50) U/L Alkaline Phosphatase 59 (38-126) U/L Troponin I 0.016 (0.000-0.034) ng/mL Serum Total Protein 8.0 (6.3-8.2) g/dL Albumin 4.4 (3.5-5.0) g/dL Triglycerides 130 (30-150) mg/dL Cholesterol 174 (50-200) mg/dL LDL Cholesterol 137 H (30-100) mg/dL HDL Cholesterol 23 L (40-60) mg/dL Heart Disease Risk Ratio 7.6 Free T4 (0.76-1.46) ng/dL TSH 3rd Generation (0.47-4.68) mIU/L Slides for Path Review YES - Radiology Exams Ordered Rad Exams-Entire Visit: Radiology Procedures Category Date Time Status CHEST 1 VIEW (PORTABLE) Stat Exams 05/28/19 07:29 Completed ECHO W/2D AND DOPPLER [US] Routine Exams 05/28/19 12:19 Taken - Procedures and Test Procedures and Tests throughout Hospitalization: Therapy Orders & Screens 05/28/19 08:34 EKG Q8HX2,QAMX3,PRN Comment: 05/28/19 14:39 EKG ONCE Comment: 05/28/19 21:00 BiPap/CPAP ROUTINE Comment: HOME UNIT PER HOME SETTINGS Diagnosis: chest pain 05/29/19 05:00 EKG ONCE Comment: 05/30/19 05:00 EKG ONCE Comment: 05/31/19 05:00 EKG ONCE Comment: Discharge Exam General Appearance: no apparent distress, alert Eye Exam: PERRL, EOMI, eyes nml inspection Respiratory Exam: normal breath sounds, lungs clear, No respiratory distress Cardiovascular Exam: regular rate/rhythm, normal heart sounds Gastrointestinal/Abdomen Exam: soft, No tenderness, No mass Extremity Exam: normal inspection, normal range of motion Skin Exam: normal color, warm, dry Final Diagnosis/Problem List - Final Discharge Diagnosis/Problem (1) Chest pain Current Visit: Yes Status: Acute Assessment & Plan: DE ruled out, appears noncardiac, plan for OP stress test and treat anxiety Code(s): R07.9 - CHEST PAIN, UNSPECIFIED (2) Anxiety Current Visit: Yes Status: Acute Assessment & Plan: DE ruled out, will get psych consult, appears to be safe for discharge but family has relayed some concerns about his safety so will get formal consult prior to discharge. continue lexapro, discussed using lorazepam at bedtime as he was able to sleep last night for the first time in several days and it helped with his anxiety and insomnia symptoms a great deal. discussed potential of dependance etc and would recommend for short-term use Code(s): F41.9 - ANXIETY DISORDER, UNSPECIFIED (3) Crohn disease Current Visit: Yes Status: Acute Code(s): K50.90 - CROHN'S DISEASE, UNSPECIFIED, WITHOUT COMPLICATIONS - Discharge Disposition: Home, Self-Care Condition: Stable Prescriptions: New Lorazepam 0.5 mg [Ativan 0.5 MG] 0.5 mg PO DAILY PRN PRN #10 tablet PRN Reason: Anxiety Continue Levothyroxine Sodium [Synthroid] 175 mcg PO DAILY Montelukast Sodium [Singulair] 10 mg PO DAILY Escitalopram Oxalate 10 mg [Lexapro 10 MG] 20 mg PO HS Testosterone Cypionate [Depo-Testosterone] 0.8 ml IM UD Dextroamphetamine/Amphetamine [Adderall Xr 20 mg Capsule] 20 mg PO DAILY Fenofibrate Nanocrystallized [Fenofibrate] 48 mg PO HS Metformin HCl 500 mg [Glucophage 500 MG] 500 mg PO BID Omeprazole 40 mg PO DAILY Vilazodone HCl [Viibryd] 1 each PO DAILY Mesalamine 1.2 gm PO DAILY Follow up with: ELIUD ZUÑIGA MD [Primary Care Provider] - 1 Week
[2019-05-29] MEDS ORDERED: NON-FORMULARY ITEM (Levothyroxine Sodium [Synthroid] 175 MCG) PO SCH (10:00)
[2019-05-29] MEDS: SYNTHROID 100 MCG PO SCH (10:17)
[2019-05-29] MEDS: SYNTHROID 75 MCG PO SCH (10:17)
[2019-05-29 11:40] VITALS: BP 129/56; PULSE 93; O2SAT 97
[2019-05-29] MEDS ORDERED: Sodium Chloride 0.9% 10 ML FLUSH Syringe IV SCH (14:00)
--- NOTE | 2019-05-29 15:25 | ECHO ---
DATE OF PROCEDURE: 05/28/2019 CLINICAL INFORMATION: Chest pain. The M-mode 2D, and Doppler echocardiogram including color flow Doppler shows the left ventricle is borderline dilated at 5.8 cm. There is no thrombus present. The septal wall thickness is increased at 1.2 cm. The left ventricular posterior wall thickness is increased at 1.2 cm. There is a mild decrease in left ventricular systolic function with the ejection fraction being calculated at 46%. The right ventricle is normal. The left atrium is normal at 3.8 cm. The interatrial septum is intact. The right atrium is normal. The aortic valve opens well. There is no aortic regurgitation present. There is mitral valve leaflet thickening associated with a trace amount of mitral regurgitation. There is a trace amount of tricuspid regurgitation. The pulmonic valve is not well visualized. The aortic root is normal at 2.6 cm. There is no pericardial effusion present. IMPRESSION: 1) MILD DECREASE IN LEFT VENTRICULAR SYSTOLIC FUNCTION. 2) MILD CONCENTRIC LEFT VENTRICULAR HYPERTROPHY. 3) TRACE AMOUNT OF TRICUSPID REGURGITATION AND MITRAL REGURGITATION.
== END 2019-05-29 14:40 | disposition home or self-care (01) ==
LOC: ED 06:31 → MED SURG 08:54
PROVIDERS: ADMIT Family Medicine; ATTEND Family Medicine
DX: R07.9 Chest pain, unspecified (principal); F41.9 Anxiety disorder, unspecified; K50.90 Crohn's disease, unspecified, without complications; Z79.899 Other long term (current) drug therapy; E11.9 Type 2 diabetes mellitus without complications; E03.9 Hypothyroidism, unspecified; G47.30 Sleep apnea, unspecified
CPT/HCPCS: 36000; 36415; 71045; 80053; 80061; 80307; 83721; 83880; 84439; 84443; 84484; 85025; 85379; 90791; 93005; 93041; 93306; 99285; G0378; Q3014; A9270-GY